=== PATIENT | male | born 1980 | race Asian ===

== ENCOUNTER 2023-09-13 06:36 | Emergency (ER) | payer BC ==
[~2023-09-13] VITALS: Ht 182.9 cm; Wt 81.8 kg
[2023-09-13 06:46] VITALS: TEMP 98
[2023-09-13 09:08] VITALS: BP 133/70; PULSE 75
== END 2023-09-13 09:08 | disposition home or self-care (01) ==
LOC: COL.ER 06:36
DX: S61.213A Laceration without foreign body of left middle finger without damage to nail, initial encounter (principal); W26.0XXA Contact with knife, initial encounter

== ENCOUNTER 2024-03-08 15:16 | Emergency (ER) | payer BC ==
[~2024-03-08] VITALS: Ht 182.9 cm; Wt 76.8 kg
[2024-03-08 16:22] VITALS: BP 111/75; PULSE 70; TEMP 98.1
== END 2024-03-08 16:28 | disposition home or self-care (01) ==
LOC: COL.ER 15:16
DX: M54.31 Sciatica, right side (principal)